=== PATIENT | female | born 1990 | race Caucasian/White ===

== ENCOUNTER 2016-04-03 15:37 | Emergency (ER) | payer OTHER, MEDICAID ==
[~2016-04-03] VITALS: Ht 160 cm; Wt 60.0 kg
[~2016-04-03 15:37] MED LIST: SYNT137T PO; Z.0.BCPILL PO
[2016-04-03 15:39] VITALS: BP 136/78; PULSE 123; RESP 14; TEMP 98.3; O2SAT 100
--- NOTE | 2016-04-03 15:57 | PD ---
HPI Chief Complaint: Abdominal Pain Time Seen by Provider: 15:54 Travel History International Travel<30 days: No Contact w/Intl Traveler<30days: No Traveled to known affect area: No History of Present Illness HPI 26-year-old female with history of Kaitlyn's presents to the emergency department for evaluation of acute onset right upper quadrant pain. Patient states that initially it seemed like her low abdomen but now has isolated to the right upper quadrant and flank area. She has been vomiting. No hematemesis. She reports no urinary symptoms. She has been chilled without fevers. Patient's only abdominal surgeries have been 2 C-sections. She reports congestive changes. No difficulty breathing. She has no other symptoms to report. PFSH Past Medical History Asthma: No Autoimmune Disease: No Anxiety: Yes Depression: No Heart Rhythm Problems: No Cancer: No Cardiovascular Problems: No Chemotherapy: No Chest Pain: No Congestive Heart Failure: No COPD: Yes Cerebrovascular Accident: No Diabetes: No Diminished Hearing: No Endocrine: No Gastrointestinal Disorders: Yes (HX OF BOWEL/STOMACH PROBLEMS, RECENT COLONSCOPY) GERD: Yes Genitourinary: No Headaches: Yes Hiatal Hernia: Yes Immune Disorder: No Musculoskeletal: No Neurologic: No Psychiatric: No Immunizations Current: Yes Migraines: Yes Radiation Therapy: No Renal Failure: No Seizures: No Sickle Cell Disease: No Sleep Apnea: No Thyroid Disease: Yes : 1 Para: 1 Past Surgical History Abdominal Surgery: No AICD: No Arteriovenous Shunt: No Cardiac Surgery: No Section: Yes (1) Ear Surgery: No Eye Surgery: No Genitourinary Surgery: No Gynecologic Surgery: No Insulin Pump: No Joint Replacement: No Neurologic Surgery: Yes (R ELBOW ULNAR NERVE RESECTION) Oral Surgery: Yes (WISDOM TEETH REMOVED) Pacemaker: No Thoracic Surgery: No Tonsillectomy: Yes (T&A) Other Surgery: Yes (right ulnar surgery) Social History Alcohol Use: No Tobacco Use: No Substance Use: No Allergies-Medications (Allergen,Severity, Reaction): Coded Allergies: Amoxicillin (Verified Allergy, Severe, Hives, 04/03/16) Cefzil (Verified Allergy, Severe, CHILD, 04/03/16) Penicillin (Verified Allergy, Severe, HIVES, 04/03/16) Shellfish (Verified Allergy, Severe, Hives, 04/03/16) States not allergic to betadine or iodine. 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 HEAD: Atraumatic. Normocephalic. EYES: Pupils equal and round. No scleral icterus. No injection or drainage. ENT: No nasal bleeding or discharge. Mucous membranes pink and moist. NECK: Trachea midline. No JVD. CARDIOVASCULAR: Tachycardic rate and rhythm. No murmur appreciated. RESPIRATORY: No accessory muscle use. Clear to auscultation. Breath sounds equal bilaterally. GASTROINTESTINAL: Abdomen soft, nondistended. Tenderness right upper quadrant to deep palpation. There is mild right sided CVA tenderness. Hepatic and splenic margins not palpable. MUSCULOSKELETAL: No obvious deformities. No clubbing. No cyanosis. No edema. NEUROLOGICAL: Awake and alert. No obvious cranial nerve deficits. Motor grossly within normal limits. Normal speech. PSYCHIATRIC: Appropriate mood and affect; insight and judgment normal. Data Data Last Documented VS Vital Signs Date Time Temp Pulse Resp B/P Pulse Ox O2 Delivery O2 Flow Rate FiO2 04/03/16 15:39 98.3 123 14 136/78 100 Room Air Orders Complete Blood Count With Diff (04/03/16 15:44) Comprehensive Metabolic Panel (04/03/16 15:44) Urinalysis - C+S If Indicated (04/03/16 15:44) Lipase (04/03/16 15:44) Iv Access Insert/Monitor (04/03/16 17:13) Sodium Chlor 0.9% 1000 Ml Inj (Ns 1000 M (04/03/16 17:15) Ondansetron Inj (Zofran Inj) (04/03/16 17:15) Ketorolac Inj (Toradol Inj) (04/03/16 17:15) Ct Abd/Pel W/O Iv Contrast (04/03/16 ) Ed Urine Pregnancytest Poc (04/03/16 17:24) Labs Laboratory Tests Test 04/03/16 04/03/16 15:30 15:53 White Blood Count 10.6 TH/MM3 Red Blood Count 4.90 MIL/MM3 Hemoglobin 14.2 GM/DL Hematocrit 42.0 % Mean Corpuscular Volume 85.7 FL Mean Corpuscular Hemoglobin 29.0 PG Mean Corpuscular Hemoglobin 33.8 % Concent Red Cell Distribution Width 12.5 % Platelet Count 191 TH/MM3 Mean Platelet Volume 8.9 FL Neutrophils (%) (Auto) 88.6 % Lymphocytes (%) (Auto) 8.3 % Monocytes (%) (Auto) 2.9 % Eosinophils (%) (Auto) 0.1 % Basophils (%) (Auto) 0.1 % Neutrophils # (Auto) 9.4 TH/MM3 Lymphocytes # (Auto) 0.9 TH/MM3 Monocytes # (Auto) 0.3 TH/MM3 Eosinophils # (Auto) 0.0 TH/MM3 Basophils # (Auto) 0.0 TH/MM3 CBC Comment DIFF FINAL Differential Comment Sodium Level 137 MEQ/L Potassium Level 3.4 MEQ/L Chloride Level 104 MEQ/L Carbon Dioxide Level 25.0 MEQ/L Anion Gap 8 MEQ/L Blood Urea Nitrogen 9 MG/DL Creatinine 0.77 MG/DL Estimat Glomerular Filtration 90 ML/MIN Rate Random Glucose 89 MG/DL Calcium Level 8.2 MG/DL Total Bilirubin 0.5 MG/DL Aspartate Amino Transf 12 U/L (AST/SGOT) Alanine Aminotransferase 19 U/L (ALT/SGPT) Alkaline Phosphatase 52 U/L Total Protein 7.6 GM/DL Albumin 3.9 GM/DL Lipase 148 U/L Urine Color YELLOW Urine Turbidity CLEAR Urine pH 5.5 Urine Specific [place] 1.026 Urine Protein NEG mg/dL Urine Glucose (UA) NEG mg/dL Urine Ketones 40 mg/dL Urine Occult Blood NEG Urine Nitrite NEG Urine Bilirubin NEG Urine Urobilinogen LESS THAN 2.0 MG/DL Urine Leukocyte Esterase NEG Urine WBC 1 /hpf Urine Squamous Epithelial 4 /hpf Cells Urine Mucus FEW /lpf Microscopic Urinalysis Comment CULT NOT INDICATED MDM Medical Decision Making Medical Screen Exam Complete: Yes Emergency Medical Condition: Yes Medical Record Reviewed: Yes Differential Diagnosis Cholelithiasis versus cholecystitis versus early or acholic versus renal calculi versus pyelonephritis Narrative Course 26-year-old female presents to emergency department for evaluation. Patient appears without distress. She does have right upper quadrant tenderness to deep palpation with mild right CVA tenderness. Workup was initiated in triage. Once a medical bed becomes available, patient will be transferred in a care assumed by that provider. 1900 CBC, CMP, lipase, and urine are all without acute concern. CT of the abdomen and pelvis shows a small cystic mass on the right adrenal. I discussed the patient with my attending physician Dr. Leonardo. Patient will be discharged to follow-up outpatient. She has Zofran at home and opts to take ibuprofen rather than prescriptive medication. She'll be discharged at this time. Diagnosis Primary Impression: Right flank pain Additional Impressions: Adrenal mass, right Nausea & vomiting Qualified Code: R11.2 - Non-intractable vomiting with nausea, unspecified vomiting type Referrals: Primary Care Physician Patient Instructions: Acute Nausea and Vomiting (ED), Biliary Colic (ED), General Instructions Additional Instructions: Follow-up with your primary care provider Utilize medications as already prescribed for nausea Ibuprofen instructed on package as needed for pain Return immediately to the emergency department with any acute worsening symptoms Med/Other Pt SpecificInfo: No Change to Meds Disposition: 01 DISCHARGE HOME Condition: Stable Mary Jo Drake Apr 03, 2016 15:57
[2016-04-03 16:43] LABS: AUTOMATED NEUTROPHIL # 9.4 TH/MM3 (1.8-7.7); BASOPHIL % 0.1 % (0.0-2.0); EOSINOPHIL % 0.1 % (0.0-4.0); HEMO FLAGS DIFF FINAL; LYMPH % 8.3 % (9.0-44.0); LYMPHOCYTE # 0.9 TH/MM3 (1.0-4.8); MEAN CELL VOLUME 85.7 FL (80.0-100.0); MEAN CORPUSCULAR HGB CONC 33.8 % (32.0-36.0); MONO % 2.9 % (0.0-8.0); NEUT % 88.6 % (16.0-70.0); PLATELET COUNT 191 TH/MM3 (150-450); RED CELL DISTRIBUTION WIDTH 12.5 % (11.6-17.2); WHITE BLOOD COUNT 10.6 TH/MM3 (4.0-11.0)
[2016-04-03 16:49] LABS: BLOOD, URINE NEG (NEG); COMMENT (UR) CULT NOT INDICATED; CULTURE IF INDICATED CULT NOT INDICATED; GLUCOSE,URINE NEG (NEG); KETONE, URINE 40 mg/dL (NEG); MUCUS URINE FEW /lpf (OCC); NITRITE,URINE NEG (NEG); PH, URINE 5.5 (5.0-8.5); SQUAMOUS EPITHELIAL CELL URINE 4 /hpf (0-5); URINE COLOR YELLOW (YELLW/STRAW)
[2016-04-03 17:03] LABS: ANION GAP 8 MEQ/L (5-15); AST (GOT) 12 U/L (15-37); BLOOD UREA NITROGEN 9 MG/DL (7-18); CHLORIDE 104 MEQ/L (98-107); GLOMERULAR FILTRATION RATE 90 ML/MIN (>89); POTASSIUM 3.4 MEQ/L (3.5-5.1); SODIUM (NA) 137 MEQ/L (136-145)
[2016-04-03 17:06] LABS: ALKALINE PHOSPHATASE 52 U/L (45-117); ALT (GPT) 19 U/L (10-53); TOTAL BILIRUBIN ADULT 0.5 MG/DL (0.2-1.0)
[2016-04-03] MEDS ORDERED: ONDANSETRON HCL 4 MG/2 ML VIAL IV PUSH ONE (17:15)
[2016-04-03] MEDS ORDERED: SODIUM CHLOR 0.9% 1000 ML INJ 1,000 ML IV ONE (17:15)
[2016-04-03] MEDS ORDERED: KETOROLAC TROMETHAMINE 30 MG/ML (IVP) VIAL IV PUSH ONE (17:15)
--- NOTE | 2016-04-03 18:41 | RADRPT ---
EXAM DATE/TIME: 04/03/2016 18:11 [facility] COMPARISON: No previous studies available for comparison. INDICATIONS : Right upper flank pain along with vomiting and nausea. ORAL CONTRAST: No oral contrast ingested. RADIATION DOSE: 7.93 CTDIvol (mGy) MEDICAL HISTORY : Hernia, hiatal. SURGICAL HISTORY : section. ENCOUNTER: Initial ACUITY: 1 day PAIN SCALE: 3/10 LOCATION: Right flank TECHNIQUE: Volumetric scanning of the abdomen and pelvis was performed. Using automated exposure control and adjustment of the mA and/or kV according to patient size, radiation dose was kept as low as reasonably achievable to obtain optimal diagnostic quality images. FINDINGS: Lung bases are clear. The liver is free of focal defects. Spleen, pancreas and adrena ls are unremarkable. There are no renal stones evident. Pelvic contents are remarkable only for trace amount of fluid in the cul-de-sac. There is a predomin antly cystic adnexal mass on the right measuring 3.6 cm. There is no fluid in the right pericolic gutter. There is no fluid around the edge of the liver to a ccount for the patient's pain. Review of bone windows reveals mild degenerative changes. CONCLUSION: Small predominantly cystic mass in the right adnexal region otherwise unremarkable. Renaldo Brantley MD FACR on April 03, 2016 at 18:25 Board Certified Radiologist. This report was verified electronically.
[2016-04-03 19:08] VITALS: PULSE 72; RESP 18
== END 2016-04-03 19:45 | disposition home or self-care (01) ==
LOC: NETRI 15:37
DX: R10.11 Right upper quadrant pain (principal); R19.09 Other intra-abdominal and pelvic swelling, mass and lump; R11.2 Nausea with vomiting, unspecified; K21.9 Gastro-esophageal reflux disease without esophagitis
CPT/HCPCS: 74176; 80053; 81001; 83690; 84703; 85025; 96361; 96374; 96375; 99284; J1885; J2405; J7030